=== PATIENT | female | born 1950 | race African-American/Black ===

== ENCOUNTER 2020-10-27 09:58 | Outpatient (CLI) | payer MEDICARE, SELFPAY ==
--- NOTE | 2020-10-27 16:32 | PFT_ITS ---
This report was moved to the correct visit, [id number], October 31, 2020. Original report was signed by Dr. Morris Crespo on October 27, 2020 at 1632. PFT Interpretation This is a pulmonary function test with pre and post-bronchodilator spirometry, plethysmography and diffusing capacity. The test was performed and results interpreted in accordance with the 2019 and 2005 ATS/ERS Task Force guidelines respectively using the Global Lung Function Initiative-2012 reference equations. Patient demonstrated good effort and cooperation. Reproducibility criteria were met. The quality of the pre bronchodilator spirometry maneuver was Grade A and post bronchodilator spirometry maneuver was Grade C. Patient had fair effort on the pre bronchodilator spirometry maneuvers. Findings: Spirometry: The expiratory flow tracing on the pre bronchodilator efforts is greatly diminished and uninterpretable likely due to poor effort. The contour of the expiratory flow tracing on the post bronchodilator effort is normal. The contour the inspiratory flow tracing are normal. The pre bronchodilator FVC is 2.10 L, 80% predicted. The pre bronchodilator FEV1 is 0.77 L, 38% predicted. The FEV1: FVC ratio on the pre bronchodilator effort is 37%. The FEV1: FVC ratio on the post bronchodilator effort is 80%. The post bronchodilator FVC is 2.26 L, representing an 8% increase. The post bronchodilator FEV1 is 1.80 L, representing 133% increase. Plethysmography: The total lung capacity is 4.03 L, 85% predicted. The functional residual capacity is 2.22 L, 73% predicted. The residual volume is 1.86 L, 87% predicted. Diffusing capacity: The absolute diffusion capacity is 9.4, 44% predicted. The diffusing capacity corrected for alveolar volume is 3.45, 82% predicted. Impression: The pre bronchodilator efforts are uninterpretable liklely due to poor effort. Recommend repeating test if clinically indicated. The post bronchodilator spirometry is normal without evidence of an obstructive abnormality. The lung volumes are normal. The absolute diffusing capacity is moderately decreased and normalizes when corrected for alveolar volume. There are no prior studies for comparison This dictation may have been done utilizing a voice recognition system. Attempts have been made to correct errors. However, there may be uncorrected grammatical, spelling, and recognition errors present. Report Initialized date/time: Morris Crespo MD 10/27/202 Electronically signed by: Morris Crespo MD 10/27/20 1632 [facility]
== END 2020-10-27 09:59 | disposition home or self-care (01) ==
PROVIDERS: PCP Internal Medicine Infectious Disease; Visit Provider Internal Medicine Infectious Disease
DX: R06.09 Other forms of dyspnea (principal)
CPT/HCPCS: 94060; 94726; 94729

== ENCOUNTER 2021-04-30 15:18 | Outpatient (CLI) | payer MEDICARE, SELFPAY ==
--- NOTE | ~2021-04-30 | CT_ITS ---
EXAMINATION: CT IAC/mastoids BI wo con EXAM DATE: 04/30/2021 16:34 INDICATION: TMJ pain, dysfunction left side of jaw. Symptoms 6 months. Difficulty opening mouth. TECHNIQUE: Spiral CT of the internal auditory canals was performed without contrast. Axial and deborah nal images were reviewed. The dose-length product (DLP) for this examination was 174.86 mGy-cm. The exposure was tailored according to patient size, and iterative reconstruction (ASIR) was used as add itional dose reduction technique. There is no prior study for comparison. FINDINGS: Temporomandibular joints were imaged. 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 No fracture or erosion. No mandibular condyle dislocation or subluxation. Incomplete fusion posterior arch of C1, normal congenital variant. RIGHT side: The middle ear is well aerated. The mastoid air cells are well aerated. The seventh experimental aircraft mechanic nial nerve has a normal course. The scutum is intact. The ossicles are normal in appearance. The cochlea and semicircular canals are normal in appearance. Internal auditory canal is normal in appea edie and symmetric compared to contralateral side. LEFT side: The middle ear is well aerated. The mastoid air cells are well aerated. The seventh cran ial nerve has a normal course. The scutum is intact. The ossicles are normal in appearance. The c ochlea and semicircular canals are normal in appearance. Internal auditory canal is normal in appear ance and symmetric compared to contralateral side. IMPRESSION: 1. Mild bilateral TMJ primary osteoarthritis. 2. Unremarkable internal auditory canals, middle ears. Reviewed, dictated and finalized at location B.
== END 2021-04-30 15:19 | disposition home or self-care (01) ==
PROVIDERS: PCP Internal Medicine Infectious Disease; Visit Provider Internal Medicine
DX: M26.629 Arthralgia of temporomandibular joint, unspecified side (principal); M26.643 Arthritis of bilateral temporomandibular joint
CPT/HCPCS: 70480

== ENCOUNTER 2022-01-01 10:29 | Outpatient (CLI) | payer OTHER, MEDICARE, SELFPAY ==
[2022-01-01 10:58] LABS: Ammonia < 9 umol/L (9-30)
[2022-01-01 11:02] LABS: INR 1.2; Prothrombin Time 14.7 Seconds (11.1-14.7)
[2022-01-01 12:07] LABS: Hepatitis B Surface Antigen Negative (Negative)
[2022-01-01 12:13] LABS: HAV RESULT Negative (Negative); Hepatitis B Core IgM Result Negative (Negative)
[2022-01-01 12:24] LABS: Hepatitis C Virus Antibody Negative (Negative)
[2022-01-04 22:32] LABS: Ceruloplasmin 33 mg/dL (18-53)
== END 2022-01-01 10:30 | disposition home or self-care (01) ==
LOC: ANHLAB 10:31
PROVIDERS: PCP Internal Medicine Infectious Disease; Visit Provider Internal Medicine Gastroenterology
DX: K74.60 Unspecified cirrhosis of liver (principal)
CPT/HCPCS: 36415; 80074; 82140; 82390; 82728; 85610

== ENCOUNTER 2022-02-04 07:22 | Outpatient (CLI) | payer OTHER, MEDICARE, SELFPAY ==
--- NOTE | ~2022-02-04 | US_ITS ---
EXAMINATION: US abdomen complete DATE: 02/04/2022 08:38 INDICATION: Unspecified cirrhosis of the liver TECHNIQUE: Multiple grayscale and Doppler ultrasound images of the abdomen were obtained. COMPARISON: None available FINDINGS: Bowel gas obscures visualization of the pancreas. The visualized portions of the pancreas a re unremarkable. The liver demonstrates increased echogenicity, heterogenous echotexture, and decreas ed through transmission. There is nodularity of the liver surface. There is a 2.2 x 2 x 1.4 cm mixed echogenicity lesion of the liver. Normal hepatopetal flow in the main portal vein. The gallbladder is normal with no abnormal wall thickening, pericholecystic fluid or stones. The normal common bile nataliia t measures 4 mm. There was no sonographic Espitia sign. The visualized portions of the aorta and infer ior vena cava are normal. The right kidney measures 10.7 x 4.4 x 5.4 cm. The left kidney measures 9.9 x 5 x 4.9 cm. The kidneys demonstrate normal parenchymal echogenicity. There is no hydronephrosis. The spleen is normal in pallavi earance and measures 8.7 cm. IMPRESSION: 1. Cirrhosis of liver with indeterminate 2.2 cm liver lesion. Further evaluation by MRI without and w ith contrast is recommended. Reviewed, dictated and finalized at location A. IMPRESSION: 1. Cirrhosis of liver with indeterminate 2.2 cm liver lesion. Further evaluatio n by MRI without and with contrast is recommended.
== END 2022-02-04 07:23 | disposition home or self-care (01) ==
PROVIDERS: PCP Internal Medicine Infectious Disease; Visit Provider Internal Medicine Gastroenterology
DX: K74.60 Unspecified cirrhosis of liver (principal)
CPT/HCPCS: 76700

== ENCOUNTER 2022-02-21 00:49 | Day surgery (SDC) | payer OTHER, MEDICARE, SELFPAY ==
[2022-02-04 14:18] VITALS: BMI 42.0
--- NOTE | 2022-02-20 15:39 | PM.HPGS ---
History of Present Illness History of Present Illness Consent: Risks, benefits, and alternatives have been discussed and questions answered. Patient agrees to proceed with procedure. Chief complaint: nausea Narrative: Danielle German is a 71 year old female who was recently found to have cirrhosis when she had an ultrasound a few months ago.? She has no known history of liver disease.? She was never a drinker.? She has never had hepatitis or yellow jaundice.? As far as her gastrointestinal system,? she has had no? weight loss or vomiting but actually has been quite nauseated for the past 6 months.? This is particularly bothersome in the morning and again later in the evening.? As the morning goes on or if she eats it subsides.? She has not been losing weight.? She has tried Pepcid but this did not give her any significant relief.? Review of Systems Review of Systems: All systems reviewed & are unremarkable except as noted in HPI and below PMFSH Past Medical History Medical History Abnormal liver diagnostic imaging Arthritis Cirrhosis Diverticulosis DJD of left shoulder History of ectopic Hypertension Left shoulder pain Nausea Nausea and vomiting Pulmonary embolism Tendonitis of left rotator cuff Family History Family History Father Asthma Heart disease Mother Hypertension Heart disease Social History Social History Smoking status: Never smoker Alcohol intake: never Substance use: never Meds Home Medications and Allergies Home Medications Medication Instructions Recorded Confirmed Type aspirin 81 mg tablet,delayed 81 mg PO DAILY 01/01/22 02/04/22 History release carvedilol 6.25 mg tablet (Coreg) 6.25 mg PO Q12H 01/01/22 02/04/22 History hydroxychloroquine 200 mg tablet 200 mg PO DAILY 01/01/22 02/04/22 History (Plaquenil) valsartan 320 1 tablet PO DAILY 01/01/22 02/04/22 History mg-hydrochlorothiazide 25 mg tablet rosuvastatin 40 mg tablet 40 tablet PO DAILY 02/04/22 02/04/22 History Allergies Allergy/AdvReac Type Severity Reaction Status Date / Time JESUS Inhibitors Allergy Severe Swelling Verified 02/21/22 08:19 of Lip/Tongue/Throat Sulfa (Sulfonamide Allergy Mild Itching Verified 02/21/22 08:19 Antibiotics) Exam Const: General: alert Orientation/consciousness: patient oriented x3 Resp: Auscultation: clear to auscultation bilaterally Cardio: Rhythm: regular rhythm GI: GI Palp: Yes Soft to palpation and No Tenderness to palpation present (GI) Neuro: General: patient oriented x3 Assessment and Plan Assessment and plan (1) Nausea: Code(s): R11.0 - Nausea Status: Acute Assessment and Plan: EGD with possible biopsy or dilatation or cautery.
[2022-02-21 08:20] VITALS: BP 168/73; PULSE 64; RESP 20; TEMP 36.1; O2SAT 100; BMI 41.7
[2022-02-21] MEDS: LACTATED RINGERS 1,000 ML 150 ML IV CONT (08:27)
--- NOTE | 2022-02-21 09:03 | WPDANESEPPF ---
Anes - Initial Pre Proc Eval Procedure: Operation Date: 02/21/22 09:45 Proposed Procedures p Esophagogastroduodenoscopy - Javier Chavez MD Date/Time: 02/21/22 09:03 Surgeon: Javier Chavez MD Pre Op Diagnosis: nausea Patient Data Age: 71 Gender: F Height: 1.68 m Weight: 117.2 kg Last Vital Signs Temp 96.9 F L 02/21/22 08:20 Pulse 64 02/21/22 08:20 Resp 20 02/21/22 08:20 BP 168/73 H 02/21/22 08:20 Pulse Ox 100 02/21/22 08:20 O2 Del Method Room Air 02/21/22 08:20 Allergies Allergy/AdvReac Type Severity Reaction Status Date / Time JESUS Inhibitors Allergy Severe Swelling Verified 02/21/22 08:19 of Lip/Tongue/Throat Sulfa (Sulfonamide Allergy Mild Itching Verified 02/21/22 08:19 Antibiotics) Home Medications Medication Instructions Recorded Confirmed Type aspirin 81 mg tablet,delayed 81 mg PO DAILY 01/01/22 02/04/22 History release carvedilol 6.25 mg tablet (Coreg) 6.25 mg PO Q12H 01/01/22 02/04/22 History hydroxychloroquine 200 mg tablet 200 mg PO DAILY 01/01/22 02/04/22 History (Plaquenil) valsartan 320 1 tablet PO DAILY 01/01/22 02/04/22 History mg-hydrochlorothiazide 25 mg tablet rosuvastatin 40 mg tablet 40 tablet PO DAILY 02/04/22 02/04/22 History Patient hx anesthesia problems: none Family hx anesthesia problems: none Results Review: All pre-operative results and documents have been reviewed as part of the pre-operative evaluation. [facility] Past Medical History Medical History Abnormal liver diagnostic imaging Arthritis Cirrhosis Diverticulosis DJD of left shoulder History of ectopic Hypertension Left shoulder pain Nausea Nausea and vomiting Pulmonary embolism Tendonitis of left rotator cuff Family History Family History Father Asthma Heart disease Mother Hypertension Heart disease Social History Social History Smoking status: Never smoker Alcohol intake: never Substance use: never Anes - Eval Final PreProcedure Day of Procedure 02/21/22 09:03 Patient weight: morbidly obese Heart: regular rate and rhythm Lungs: clear to auscultation Airway: Mallampati scale class II Neurological: alert and oriented Last oral intake: >/= 8 hours ASA classification: III Emergent: no Anesthetic plan: proceed Anesthesia type and monitoring: general GIVS and standard monitoring Results Review: All pre-operative results and documents have been reviewed as part of the pre-operative evaluation. Informed Consent: The patient's anesthetic plan and its attendant risks and benefits were discussed with the patient/family/POA. Questions were solicited and answers provided to the satisfaction of the patient/family/POA.
[2022-02-21 09:40] VITALS: BP 110/64; PULSE 67; RESP 14; TEMP 36.1; O2SAT 100
[2022-02-21 10:00] VITALS: BP 125/64; PULSE 62; RESP 17; TEMP 36.1; O2SAT 100
== END 2022-02-21 10:32 | disposition home or self-care (01) ==
PROVIDERS: PCP Internal Medicine Infectious Disease; Visit Provider Internal Medicine Gastroenterology
PROC: 0DJ08ZZ Inspection of Upper Intestinal Tract, Via Natural or Artificial Opening Endoscopic (ICD-10-PCS; CPT 43235; principal; 2022-02-21 09:45)
DX: R11.0 Nausea (principal); K21.9 Gastro-esophageal reflux disease without esophagitis; K74.60 Unspecified cirrhosis of liver; I10 Essential (primary) hypertension; Z86.711 Personal history of pulmonary embolism; Z79.82 Long term (current) use of aspirin
CPT/HCPCS: 43239; 87081; J2704; J7120

== ENCOUNTER 2022-02-28 10:03 | Outpatient (CLI) | payer OTHER, MEDICARE, SELFPAY ==
[2022-02-28 11:56] LABS: Alanine Aminotransferase 13 U/L (6-35); Aspartate Amino Transferase 70 U/L (14-36)
== END 2022-02-28 10:04 | disposition home or self-care (01) ==
PROVIDERS: PCP Internal Medicine Infectious Disease; Visit Provider Podiatrist Foot & Ankle Surgery
DX: B35.1 Tinea unguium (principal)
CPT/HCPCS: 36415; 84450; 84460

== ENCOUNTER 2022-03-01 13:57 | Outpatient (CLI) | payer OTHER, MEDICARE, SELFPAY ==
--- NOTE | ~2022-03-01 | MR_ITS ---
EXAMINATION: MR abdomen wo/w con DATE: 03/01/2022 15:07 INDICATION: Abnormal ultrasound with indeterminate hepatic lesion. TECHNIQUE: Magnetic resonance imaging (MRI) of the abdomen was performed without and with 20 mL Multi nery intravenous contrast. Sequences included coronal T2-weighted SS-FSE, coronal and axial FS 2D-F IESTA, axial STIR FSE, axial T2-weighted SS-FSE, axial T2-weighted FS SS-FSE, axial diffusion-weighte d SE, axial dual-echo T1-weighted FSPGR, and axial and coronal T1-weighted LAVA. Postcontrast axial T 1-weighted LAVA images were obtained in a time course. Postcontrast coronal T1-weighted LAVA images w ere obtained. COMPARISON: Ultrasound dated 02/04/2022 FINDINGS: Heart size is normal. No pericardial or pleural effusion. 1.5 cm T2 hyperintense cyst with nearly ind iscernible thin nonenhancing internal septation. No enhancing soft tissue component. Gallbladder, harrington creas, spleen, bilateral adrenal glands and left kidney are normal. 4 mm nonenhancing T2 hyperintense cyst at the lower pole of the right kidney. 8 mm splenule along the caudal margin of the spleen. Colby dder, anteverted uterus and bilateral adnexa are unremarkable on the coronal images. Visualized bowel s are normal with no obstruction. No pathologically enlarged abdominal or pelvic lymphadenopathy. Mil d lumbar dextrocurvature with mild spondylosis. Normal bone marrow signal. IMPRESSION: 1. 1.5 cm septated cyst in the right hepatic lobe with no solid enhancing soft tissue component to santiago ggest neoplasm. Reviewed, dictated and finalized at location B. IMPRESSION: 1. 1.5 cm septated cyst in the right hepatic lobe with no solid enhancing soft tissue component to suggest neoplasm.
[2022-03-01 14:28] LABS: Estimated Glomerular Filt Rate > 60
== END 2022-03-01 13:58 | disposition home or self-care (01) ==
PROVIDERS: PCP Internal Medicine Infectious Disease; Visit Provider Internal Medicine Gastroenterology
DX: R16.0 Hepatomegaly, not elsewhere classified (principal); K76.89 Other specified diseases of liver
CPT/HCPCS: 74183; A9577

== ENCOUNTER 2022-03-08 07:52 | Emergency (ER) | payer OTHER, MEDICARE, SELFPAY ==
--- NOTE | ~2022-03-08 | XR_ITS ---
EXAMINATION: XR knee LT min 4V DATE: 03/08/2022 09:52 INDICATION: Generalized left knee pain post fall 2 weeks prior TECHNIQUE: Anteroposterior, 2 oblique and crosstable lateral views of the left knee were obtained COMPARISON: None. FINDINGS: Left total knee arthroplasty with patellar resurfacing appears well seated in near-anatomic alignment . No periprosthetic lucency to suggest loosening or infection. No acute fracture. Chronic periosteal reaction along the lateral metaphyseal region of the proximal tibia could represent sequela of prior surgery or old healed fracture. Small corticated osteochondral body projects over Hoffa's fat pad. So ft tissues are unremarkable. No left knee joint effusion. IMPRESSION: 1. Left total knee arthroplasty in near-anatomic alignment. No left knee joint effusion or acute osse ous abnormality. Reviewed, dictated and finalized at location A. IMPRESSION: 1. Left total knee arthroplasty in near-anatomic alignment. No left knee joint effusion or acute osseous abnormality.
--- NOTE | ~2022-03-08 | XR_ITS ---
XR hip LT 2V w AP pelvis 03/08/2022 08:26 Indication: Left hip pain Procedure: AP pelvis and 2 views left hip Comparison: No prior studies for comparison. Findings: There is mild osteoarthritis of the left hip. There is lower lumbar spondylosis. Pelvic rin gs are intact. No acute fracture or traumatic malalignment. Sacral foramen are symmetric. Pelvic ring s are intact. Impression: 1: No acute fracture. Reviewed, dictated and finalized at location A. Impression: 1: No acute fracture.
--- NOTE | ~2022-03-08 | CT_ITS ---
EXAMINATION: CT pelvis wo con DATE: 03/08/2022 09:40 INDICATION: Left hip pain post fall 2 weeks prior. TECHNIQUE: High resolution computed tomography (CT) of the pelvis was performed without intravenous c ontrast. Additional sagittal and coronal reconstructions were performed. Automated exposure control a nd iterative reconstruction technique were employed. The dose-length product was 822.31 mGy-cm. COMPARISON: None FINDINGS: Mild bilateral hip osteoarthritis with mild subarticular cystic changes at the anterior superior righ t acetabulum. No fracture or suspected avascular necrosis. No evident hip joint effusions, hematomas or other abnormal fluid collections. Moderate bilateral sacroiliac osteoarthritis. Anterior spinal fu sonny at L5-S1. 2-3 mm anterolisthesis L4 on L5. Bone alignment is otherwise normal. Mild disc height loss at L3-L4 and L4-L5. Severe bilateral lower lumbar facet osteoarthritis. Visualized portion of th e lower pole of the right kidney and bowels are normal. Bladder is normal. Age-appropriate uterine at rophy. No free fluid in the pelvis. No pathologically enlarged pelvic or inguinal lymphadenopathy. IMPRESSION: 1. Mild bilateral hip osteoarthritis. No acute osseous abnormality. 2. Anterior fusion at L5-S1 with severe lower lumbar facet osteoarthritis and mild degenerative disc disease at L3-L4 and L4-L5. Reviewed, dictated and finalized at location A. IMPRESSION: 1. Mild bilateral hip osteoarthritis. No acute osseous abnormality. 2. Anterior fusion at L5-S1 with severe lower lumbar facet osteoarthritis and m ild degenerative disc disease at L3-L4 and L4-L5.
[2022-03-08 07:56] VITALS: BP 133/102; PULSE 65; RESP 14; TEMP 36.1; O2SAT 97
[2022-03-08] MEDS: NAPROXEN 500 MG TABLET PO (09:55)
[2022-03-08] MEDS: HYDROmorphone HCL INJ (*CRX) 1 MG/ML SYR IM (10:39)
[2022-03-08] MEDS: ONDANSETRON HCL ODT 4 MG TABLET PO (10:39)
--- NOTE | 2022-03-08 10:43 | ED.LOWEXIN ---
HPI - Extremity Injury (Lower) General Chief Complaint: Extremity Injury, Lower Stated Complaint: left hip pain, fell two weeks ago. Time Seen by Provider: 03/08/22 08:00 Source: patient and RN notes reviewed Mode of arrival: wheelchair Limitations: no limitations History of Present Illness HPI Narrative: This is a 71 year old female who presents for evaluation of left hip pain s/p fall. Patient states she accidentally fell 2 weeks ago onto her left hip. She reports it was on carpeted floor. She denies hitting her head or LOC. She has been having mild pain to her left hip since her fall, but she states it worsened 1 week ago. Her pain is worse with ambulation. She has been taking excedrine and aleve for her pain. She is using cane to walk. She denies numbness or tingling. Related Data Home Medications Medication Instructions Recorded Confirmed aspirin 81 mg tablet,delayed 81 mg PO DAILY 01/01/22 02/04/22 release carvedilol 6.25 mg tablet (Coreg) 6.25 mg PO Q12H 01/01/22 02/04/22 hydroxychloroquine 200 mg tablet 200 mg PO DAILY 01/01/22 02/04/22 (Plaquenil) valsartan 320 1 tablet PO DAILY 01/01/22 02/04/22 mg-hydrochlorothiazide 25 mg tablet rosuvastatin 40 mg tablet 40 tablet PO DAILY 02/04/22 02/04/22 Allergies Allergy/AdvReac Type Severity Reaction Status Date / Time JESUS Inhibitors Allergy Severe Swelling Verified 03/08/22 08:07 of Lip/Tongue/Throat Sulfa (Sulfonamide Allergy Mild Itching Verified 03/08/22 08:07 Antibiotics) Review of Systems Review of Systems: All systems reviewed & are unremarkable except as noted in HPI and below PMFSH Past Medical History Medical History Abnormal liver diagnostic imaging Arthritis Cirrhosis Diverticulosis DJD of left shoulder History of ectopic Hypertension Left shoulder pain Nausea Nausea and vomiting Pulmonary embolism Tendonitis of left rotator cuff Family History Family History Father Asthma Heart disease Mother Hypertension Heart disease Social History Social History Smoking status: Never smoker Alcohol intake: never Substance use: never Exam Const: General: no acute distress and alert Nutritional Appearance: obese Orientation/consciousness: patient oriented x3 Limitations: no limitations Eyes: EOM: EOMs intact bilaterally Resp: Effort & Inspection: normal respiratory effort Cardio: Other: bilateral pedal pulse Skin: General skin exam: normal color Rashes: no rashes Wounds: no wounds Neuro: General: patient oriented x3, moves all extremities and CN's II-XI intact bilaterally Extrem: Other: FROM of left leg and hip, no noticeable swelling. Patient has pain with walking and bearing weight Psych: Mental Status: mental status grossly normal Affect: normal affect Course Reevaluation(s) Reevaluation #1: I discussed with patient that xray and CT does not show acute fracture. She is finding a ride to get more pain control. Date: 03/08/22 Time: 10:47 Vital Signs Vital signs: Vital Signs Temperature 97.0 F L 03/08/22 07:56 Pulse Rate 65 03/08/22 07:56 Respiratory Rate 14 03/08/22 07:56 Blood Pressure 133/102 H 03/08/22 07:56 Pulse Oximetry 97 03/08/22 07:56 Oxygen Delivery Room Air 03/08/22 07:56 Temperature 97.0 F L 03/08/22 07:56 Pulse Rate 65 03/08/22 07:56 Respiratory Rate 14 03/08/22 07:56 Blood Pressure 133/102 H 03/08/22 07:56 Pulse Oximetry 97 03/08/22 07:56 Oxygen Delivery Room Air 03/08/22 07:56 MDM - Extremity Injury (Lower) Imaging Data Radiologist's impression: ITS Impressions Hip/Pelvis X-Ray 03/08/22 08:29 Impression: 1: No acute fracture. Knee X-Ray 03/08/22 09:55 IMPRESSION: 1. Left total knee arthroplasty in near-anatomic
== END 2022-03-08 11:05 | disposition home or self-care (01) ==
PROVIDERS: Emergency Provider General Practice; PCP Internal Medicine Infectious Disease
DX: S79.912A Unspecified injury of left hip, initial encounter (principal); M16.0 Bilateral primary osteoarthritis of hip; K74.60 Unspecified cirrhosis of liver; I10 Essential (primary) hypertension; M19.012 Primary osteoarthritis, left shoulder; Z86.711 Personal history of pulmonary embolism; Z96.652 Presence of left artificial knee joint; M51.36 Other intervertebral disc degeneration, lumbar region; M47.816 Spondylosis without myelopathy or radiculopathy, lumbar region; M43.27 Fusion of spine, lumbosacral region; W19.XXXA Unspecified fall, initial encounter
CPT/HCPCS: 72192; 73502; 73564; 96372; 99284; A9270; J1170

== ENCOUNTER 2022-08-27 16:05 | Outpatient (CLI) | payer OTHER, MEDICARE, SELFPAY ==
[2022-08-27 17:04] LABS: Alanine Aminotransferase 19 U/L (6-35); Albumin Level 4.2 g/dL (3.5-5.1); Alkaline Phosphatase 125 U/L (38-126); Aspartate Amino Transferase 29 U/L (14-36); Bilirubin,Total 0.2 mg/dL (0.2-1.3)
== END 2022-08-27 16:06 | disposition home or self-care (01) ==
PROVIDERS: PCP Internal Medicine Infectious Disease; Visit Provider Internal Medicine Gastroenterology
DX: K74.60 Unspecified cirrhosis of liver (principal)
CPT/HCPCS: 36415; 80076

== ENCOUNTER 2022-09-05 07:29 | Outpatient (CLI) | payer OTHER, MEDICARE, SELFPAY ==
--- NOTE | ~2022-09-05 | US_ITS ---
Abdominal Sonogram: Real-time sonographic imaging of the abdomen was performed. Clinical History: Cirrhosis of the liver Findings: The liver appears normal with no evidence of mass lesion or bile duct dilatation. Main por marjorie vein demonstrates normal direction of flow. The spleen is normal in size without evidence of foca l lesion. The gallbladder is well distended, and appears normal with no evidence of gallstone or wal l thickening. The common bile duct is not clearly visualized. The visualized aorta and IVC are unrem arkable. Pancreas largely obscured by bowel gas shadowing. The right kidney measures 11.0 cm in lengt h and the left kidney measures 10.3 cm. There is no hydronephrosis or renal calculus. Impression: No significant abnormality seen. Reviewed, dictated and finalized at [facility]. [employer] Impression: No significant abnormality seen.
== END 2022-09-05 07:30 | disposition home or self-care (01) ==
PROVIDERS: PCP Internal Medicine Infectious Disease; Visit Provider Internal Medicine Gastroenterology
DX: K74.60 Unspecified cirrhosis of liver (principal)
CPT/HCPCS: 76700

== ENCOUNTER 2023-04-17 16:46 | Outpatient (CLI) | payer OTHER, MEDICARE, SELFPAY ==
--- NOTE | ~2023-04-17 | MR_ITS ---
EXAMINATION: MR brain/brain stem wo con DATE: 04/17/2023 17:43 INDICATION: Lightheadedness. TECHNIQUE: Magnetic resonance imaging (MRI) of the brain and brainstem was performed without intraven ous contrast. COMPARISON: None. FINDINGS: There is no intracranial hemorrhage, acute infarction, or abnormal intracranial mass lesion . There are a few areas of nonspecific increased T2-weighted signal intensity in the cerebral white m atter, which is within normal limits for the patient's age. The ventricles are normal in size. The pa ranasal sinuses are clear. There are likely changes of ocular lens replacement surgeries. The mastoid air cells are normal. IMPRESSION: 1. Normal brain. Reviewed, dictated and finalized at location E. IMPRESSION: 1. Normal brain.
== END 2023-04-17 16:47 | disposition home or self-care (01) ==
LOC: ANHIMG 16:48
PROVIDERS: PCP Internal Medicine Infectious Disease; Visit Provider Internal Medicine Infectious Disease
DX: R42 Dizziness and giddiness (principal)
CPT/HCPCS: 70551

== ENCOUNTER → 2023-08-23 08:30 | Outpatient (CLI) | payer OTHER, MEDICARE, SELFPAY ==
--- NOTE | ~2023-08-23 | US_ITS ---
Abdominal Sonogram: Real-time sonographic imaging of the abdomen was performed. Clinical History: Cirrhosis Findings: The liver appears mild heterogeneous, with no evidence of mass lesion or bile duct dilatat ion. Main portal vein demonstrates normal direction of flow. The spleen is normal in size without yokasta dence of focal lesion. The gallbladder is well distended, and appears normal with no evidence of gal lstone or wall thickening. The common bile duct measures 3 mm. The pancreas is obscured by bowel gas shadowing. Visualized aorta/IVC are unremarkable. The right kidney measures 9.6 cm in length and th e left kidney measures 8.3 cm. There is no hydronephrosis or renal calculus. Impression: Heterogeneous hepatic echotexture could reflect fatty infiltration or other chronic liver disease. Reviewed, dictated and finalized at [facility]. CLERK Impression: Heterogeneous hepatic echotexture could reflect fatty infiltration or other chr onic liver disease.
== END ==
PROVIDERS: PCP Internal Medicine Gastroenterology; Visit Provider Internal Medicine Gastroenterology
DX: K74.60 Unspecified cirrhosis of liver (principal)
CPT/HCPCS: 76700

== ENCOUNTER → 2023-08-23 08:43 | Outpatient (CLI) | payer OTHER, MEDICARE, SELFPAY ==
--- NOTE | ~2023-08-23 | XR_ITS ---
Lumbosacral Spine: AP and lateral views Clinical History: Pain Findings: The normal lordotic curve is maintained. There is 6 mm anterolisthesis of L3 over L4. There is advanced degenerative disc narrowing L3-L4. There is advanced facet arthropathy throughout the diandra mbar spine. No fracture evident. The sacroiliac joints are normally outlined. Impression: 6 mm anterolisthesis of L3 over L4. Moderate to advanced degenerative spondylosis, as above. Reviewed, dictated and finalized at location M. [employer] SAL[employer] Impression: 6 mm anterolisthesis of L3 over L4. Moderate to advanced degenerative spondylosis, as above.
== END ==
PROVIDERS: PCP Internal Medicine Infectious Disease; Visit Provider Internal Medicine Infectious Disease
DX: M47.896 Other spondylosis, lumbar region (principal)
CPT/HCPCS: 72100

== ENCOUNTER 2023-11-03 10:41 | Outpatient (CLI) | payer OTHER, MEDICARE, SELFPAY ==
[2023-11-03 11:18] LABS: Hematocrit 34.5 % (37.0-47.0); Hemoglobin 11.1 g/dL (12.0-15.0); Mean Corpuscular HGB Conc 32.2 g/dl (32-36); Mean Corpuscular Hemoglobin 29.8 pg (26-34); Mean Corpuscular Volume 92.7 fl (80-100); Mean Platelet Volume 9.2 fl (7.4-10.4); Platelet Count Result 243 k/mm3 (150-375); Red Blood Count 3.72 M/mm3 (4.2-5.4); White Blood Count 4.4 K/mm3 (4.5-10.0)
[2023-11-03 11:35] LABS: Alanine Aminotransferase 14 U/L (6-35); Albumin Level 4.1 g/dL (3.5-5.1); Alkaline Phosphatase 115 U/L (38-126); Anion Gap 6 mmol/L (8-16); Aspartate Amino Transferase 24 U/L (14-36); Bilirubin,Total 0.6 mg/dL (0.2-1.3); Blood Urea Nitrogen 22 mg/dL (7-17); Calcium 9.4 mg/dL (8.4-10.2); Carbon Dioxide 24 mmol/L (22-30); Chloride 108 mmol/L (98-107); Estimated Glomerular Filt Rate > 60; Glucose 99 mg/dL (65-110); INR 1.2; Potassium 4.1 mmol/L (3.4-5.0); Prothrombin Time 15.9 Seconds (11.1-14.7); Sodium 138 mmol/L (137-145)
[2023-11-03 11:38] LABS: Appearance Urine Cloudy (Clear); Bacteria Urine None Seen /hpf; Bilirubin Urine Negative (Negative); Blood Urine Negative (Negative); Color Urine Yellow (Yellow); Glucose Urine UA Negative (Negative); Ketones Urine Negative (Negative); Leukocyte Esterase Ur 2+ LEU/UL (Negative); Need Manual Microscopic Reviewed; Nitrate Urine Negative (Negative); Non Pathogenic Casts 0-2; Protein Urine Negative (Negative); RBC Urine >100 /hpf (0-2); Specific Grav Ur 1.008 (1.001-1.035); Squamous Epithelial Cell Urine None Seen /hpf (Few); WBC Urine 51-100 /hpf (0-3); pH Urine 6.5 (5.0-9.0)
[2023-11-03 11:43] LABS: Add Urine Microscopic? YES
[2023-11-07 12:49] LABS: Actin Antibody (IgG) <20 U (<20); LKM 1 Antibody <=20.0 U (<=20.0)
[2023-11-08 21:05] LABS: Alpha-1-Antitrypsin, QN 130 mg/dL (83-199)
[2023-11-09 11:54] LABS: Mitochondrial (M2) Ab (IgG) <=20.0 U (<=20.0)
[2023-11-12 17:08] LABS: ALT 9 U/L (6-29); Alpha Fetoprotein Tumor Marker 1.9 ng/mL (<6.1); Alpha-2-Macroglobulin 277 mg/dL (106-279); Apolipoprotein A1 119 mg/dL (101-198); Fibrosis Score 0.45; Fibrosis Stage F1-F2; GGT 21 U/L (3-65); Haptoglobin 118 mg/dL (43-212); Necroinflammat Act Grade A0; Total Bilirubin 0.4 mg/dL (0.2-1.2)
== END 2023-11-03 10:42 | disposition home or self-care (01) ==
PROVIDERS: PCP Internal Medicine Infectious Disease; Visit Provider Nurse Practitioner
DX: R30.0 Dysuria (principal); K74.60 Unspecified cirrhosis of liver
CPT/HCPCS: 36415; 80053; 81596; 82103; 82105; 83520; 85027; 85610; 86364; 86376; 87077; 87086; 87088; 87186

== ENCOUNTER 2024-04-30 07:26 | Outpatient (CLI) | payer OTHER, MEDICARE, SELFPAY ==
--- NOTE | ~2024-04-30 | US_ITS ---
EXAMINATION: US abdomen limited DATE: 04/30/2024 08:04 INDICATION: Liver fibrosis TECHNIQUE: Multiple grayscale and Doppler ultrasound images of the abdomen were obtained. COMPARISON: Ultrasound dated 08/23/2023 and MRI dated 03/01/2022 FINDINGS: The pancreatic head and body are normal in appearance. The pancreatic tail is not visualized. The vi sualized proximal to mid inferior vena cava and aorta are normal. Liver has normal echogenicity and c ontour, with a smooth surface. Increase in size of a previously 1.5 cm currently 2.2 cm anechoic sept ated cyst in the caudal right hepatic lobe. No other hepatic lesions identified. No intrahepatic bili eula duct dilation suspected. Portal venous flow was seen in the hepatopetal, normal direction and has normal Doppler waveform. The gallbladder is normal in appearance. There is no cholelithiasis. The c ommon bile duct measures 4 mm, which is normal. Sonographic Espitia sign was reported as negative by t library serials assistant. IMPRESSION: 1. 2.2 cm septated cyst in the right hepatic lobe. Otherwise unremarkable right upper quadrant ultras ound. Reviewed, dictated and finalized at location B. IMPRESSION: 1. 2.2 cm septated cyst in the right hepatic lobe. Otherwise unremarkable right upper quadrant ultrasound.
== END 2024-04-30 07:27 | disposition home or self-care (01) ==
PROVIDERS: PCP Internal Medicine Infectious Disease; Visit Provider Nurse Practitioner Family
DX: K74.69 Other cirrhosis of liver (principal)
CPT/HCPCS: 76705

== ENCOUNTER 2024-07-13 09:44 | Emergency (ER) | payer OTHER, MEDICARE, SELFPAY ==
--- NOTE | ~2024-07-13 | XR_ITS ---
XR chest 2V Ordering provider: Nickolas Arzola APRN History: 74 years Female with . cough/sob x 5 days . Comparison: None. FINDINGS: MEDIASTINUM: The cardiac silhouette is not enlarged. LUNGS: No infiltrates, effusions or pneumothorax. OTHER: No free air under the diaphragm. Degenerative changes of the spine. IMPRESSION: No acute cardiopulmonary pathology. Reviewed, dictated and finalized at location A. [employer]
--- NOTE | 2024-07-13 09:57 | ED.URI ---
HPI - URI/Sore Throat General Chief Complaint: Upper Respiratory Infection Stated Complaint: Fever/Sinus Time Seen by Provider: 07/13/24 09:47 Source: patient Mode of arrival: ambulatory Limitations: no limitations History of Present Illness HPI Narrative: Danielle is a 74-year-old female patient presenting to the clinic today with complaints of cough, vomiting, fever, body aches, chills, sinus congestion, and congestion. She states that she has been sick for the last week but over the last 5 days her symptoms have worsened. States she does have some shortness of breath with her coughing. No history of COPD or asthma. MD elicited complaint: sore throat and nasal congestion Related Data Home Medications Medication Instructions Recorded Confirmed aspirin 81 mg tablet,delayed 81 mg PO DAILY 01/01/22 07/13/24 release carvedilol 6.25 mg tablet (Coreg) 6.25 mg PO Q12H 01/01/22 07/13/24 hydroxychloroquine 200 mg tablet 200 mg PO DAILY 01/01/22 07/13/24 (Plaquenil) valsartan 320 1 tablet PO DAILY 01/01/22 07/13/24 mg-hydrochlorothiazide 25 mg tablet cholecalciferol (vitamin D3) 1,250 1,250 mcg PO WEEKLY 02/25/23 07/13/24 mcg (50,000 unit) capsule oxybutynin chloride 10 mg 10 mg PO DAILY 07/13/24 07/13/24 tablet,extended release 24 hr Allergies Allergy/AdvReac Type Severity Reaction Status Date / Time JESUS Inhibitors Allergy Severe Swelling Verified 07/13/24 10:05 of Lip/Tongue/Throat Sulfa (Sulfonamide Allergy Mild Itching Verified 07/13/24 10:05 Antibiotics) Review of Systems Review of Systems: Pertinent positives per HPI. Patient denies any fever, chills, rash, headache, visual changes, dizziness, chest pain, palpitations, diarrhea, constipation, abdominal pain, or any urinary issues. [facility] Past Medical History Medical History Abnormal liver diagnostic imaging Arthritis Cirrhosis Diverticulosis DJD of left shoulder Dysuria Hepatic cyst History of ectopic Hypertension Left shoulder pain Nausea Nausea and vomiting Pulmonary embolism Tendonitis of left rotator cuff Family History Family History Father Asthma Heart disease Mother Hypertension Heart disease Social History Social History Smoking status: Never smoker Alcohol intake: never Substance use: never Comments At the time of my signature, I reviewed and agree with the nursing past medical, surgical, social, and family history. There is no relevant family history pertinent to the patient complaint. Exam Narrative: General: Well-developed, well nourished, in no apparent distress Head: Normocephalic, atraumatic Eyes: Pupils equally round and reactive to light bilaterally, EOM intact, sclera and conjunctive clear, no discharge, lids normal Ears: TMs intact and congested, ear canals clear, no drainage, grossly hearing normal. Nose: Nares patent, clear nasal discharge, no inflammation, no sinus tenderness. Mouth: Oral pharynx without lesions or masses, good dentition, MMM. Neck: Supple, trachea midline, no enlargement of anterior or posterior cervical nodes, no thyroid masses or goiter palpable. Cardio: Regular rate and rhythm, s1 and s2 normal, no murmur appreciated. Resp: Diminished in the bases otherwise clear, no rhonchi, rales, wheezing or rubs Course Course Emergency Course: Portions of this record may have been created with voice recognition software. Level of Care: Express Care Visit Vital Signs Vital signs: Vital signs reviewed MDM - URI/Sore Throat MDM Narrative Medical decision making narrative: At the time of visit patient is resting comfortably on the exam table. Patient appears to be nontoxic. Labs: COVID and flu test were negative Diagnostics: Chest x-ray was performed and negative for any acute cardiopulmonary process in the clinic today Plan: I suspect patient has URI with cough and congestion. Prescription for prednisone albuterol inhaler, and Tessalon Perles was sent to the pharmacy. Supportive measures were discussed with the patient and they voiced understanding discharge instructions and agrees to treatment plan. Return precautions reviewed Differential Diagnosis Differential diagnosis: Likely upper respiratory infection, otitis media, sinusitis, viral infection, bronchitis, influenza, pharyngitis and other (COVID) Discharge Plan Discharge Clinical Impression: Upper respiratory infection with cough and congestion Patient Disposition: Home, Self-Care Condition: Stable Instructions: Antibiotic Form, Upper Respiratory Infection (ED) Additional Instructions: COVID and influenza testing was negative in the clinic today Chest x-rays negative for any acute cardiopulmonary process. Take prescription medications only as prescribed-prednisone, Tessalon Perles, and albuterol inhaler Increase fluids and stay well hydrated Tylenol/motrin for pain/fever Flonase and OTC antihistamines as directed Vicks vapor rub to open sinuses Sinus rinses for congestion Cepacol spray, cough drops, throat lozenges, warm tea with honey/lemon, gargle salt water to soothe throat BRAT diet for diarrhea Clear liquids x 24 hours then advance as tolerated for nausea/vomiting Go to the ED if you develop a worsening in your condition- high fever not controlled by Tylenol or Motrin, dehydration, weakness, lethargy, shortness of breath, or chest pain. Follow up with your PCP in 3-5 days if symptoms persist. Prescriptions: New benzonatate 200 mg capsule 200 mg PO TID 7 Days Qty: 21 0RF albuterol sulfate 90 mcg/actuation HFA aerosol inhaler 2 puff inhalation Q4-6H PRN (Reason: shortness of breath or wheezing) 30 Days Qty: 8.5 0RF prednisone 20 mg tablet 40 mg PO DAILY 5 Days Qty: 10 0RF No Action oxybutynin chloride 10 mg tablet extended release 24hr 10 mg PO DAILY famotidine 40 mg tablet 40 mg PO DAILY Qty: 90 0RF valsartan-hydrochlorothiazide 320-25 mg tablet 1 tablet PO DAILY hydroxychloroquine [Plaquenil] 200 mg tablet 200 mg PO DAILY carvedilol [Coreg] 6.25 mg tablet 6.25 mg PO Q12H Rx Instructions: must administer with a meal/food aspirin 81 mg tablet,delayed release (DR/EC) 81 mg PO DAILY cholecalciferol (vitamin D3) 1,250 mcg (50,000 unit) capsule 1,250 mcg PO WEEKLY Follow-up/Referrals: Rosaline,Vickie Nunes [Primary Care Provider] - Time of Disposition: 10:31 Quality NIHSS Nursing Documentation ED NIHSS nursing documentation: reviewed/agree
[2024-07-13 10:04] VITALS: BP 148/80; PULSE 63; RESP 16; TEMP 36.4; O2SAT 100
[2024-07-13 10:17] VITALS: BP 148/80; PULSE 63; RESP 16; TEMP 36.4; O2SAT 100
[2024-07-13 10:17] LABS: EDCOVIDSCREEN Negative (Negative); EDINFLUASCREEN Negative (Negative); EDINFLUBSCREEN Negative (Negative)
== END 2024-07-13 10:40 | disposition home or self-care (01) ==
PROVIDERS: Emergency Provider Nurse Practitioner Family; PCP Internal Medicine Infectious Disease
DX: J06.9 Acute upper respiratory infection, unspecified (principal); R05.9 Cough, unspecified; Z20.822 Contact with and (suspected) exposure to COVID-19; K74.60 Unspecified cirrhosis of liver; I10 Essential (primary) hypertension; M19.90 Unspecified osteoarthritis, unspecified site; Z86.711 Personal history of pulmonary embolism; M19.012 Primary osteoarthritis, left shoulder
CPT/HCPCS: 71046; 87426; 87804; 99213; G0463

== ENCOUNTER 2024-11-19 07:45 | Outpatient (CLI) | payer OTHER, MEDICARE, SELFPAY ==
--- NOTE | ~2024-11-19 | US_ITS ---
US abdomen limited INDICATION: Cirrhosis of the liver. Liver mass. PROCEDURE: Realtime right upper abdominal ultrasound. COMPARISON: No prior studies for comparison. FINDINGS: Pancreas is not well visualized due to bowel gas. There is a heterogeneous 2.2 cm liver ma ss containing internal calcifications and marginal vascularity. There is normal directional flow in the portal vein. The gallbladder is normal without stones, gallbladder wall thickening or pericholecystic fluid. Comm on bile duct measures 3 mm. No sonographic Espitia's sign. IMPRESSION: 1: Complex partially calcified 2.2 cm liver mass. Correlation with MRI of the abdomen without and wit h contrast recommended. Reviewed, dictated and finalized at location A. IMPRESSION: 1: Complex partially calcified 2.2 cm liver mass. Correlation with MRI of the a bdomen without and with contrast recommended.
== END 2024-11-19 07:46 | disposition home or self-care (01) ==
PROVIDERS: PCP Internal Medicine Infectious Disease; Visit Provider Nurse Practitioner Family
DX: K74.69 Other cirrhosis of liver (principal); R16.0 Hepatomegaly, not elsewhere classified
CPT/HCPCS: 76705

== ENCOUNTER 2025-01-04 08:42 | Outpatient (CLI) | payer MEDICARE, OTHER, SELFPAY ==
--- NOTE | ~2025-01-04 | MR_ITS ---
EXAMINATION: MR abdomen wo/w con DATE: 01/04/2025 09:39 INDICATION: Abnormal findings on diagnostic imaging of liver and biliary system TECHNIQUE: Magnetic resonance imaging (MRI) of the abdomen was performed without and with 20 mL Multi nery intravenous contrast. Sequences included coronal T2-weighted SS-FSE, coronal and axial FS 2D-F IESTA, axial STIR FSE, axial T2-weighted SS-FSE, axial T2-weighted FS SS-FSE, axial diffusion-weighte d SE, axial dual-echo T1-weighted FSPGR, and axial and coronal T1-weighted LAVA. Postcontrast axial T 1-weighted LAVA images were obtained in a time course. Postcontrast coronal T1-weighted LAVA images w ere obtained. COMPARISON: 03/01/2022 FINDINGS: Heart size is normal. No pericardial or pleural effusion. 2.0 cm cyst in the right hepatic lobe which corresponds to a region of concern on prior ultrasound. No other hepatic lesions identified. Gallbla dder, spleen, pancreas and bilateral adrenal glands are normal. There are a few tiny bilateral T2 hyp erintense nonenhancing renal cysts the largest on the right measuring 4 mm. There are several scatter ed clonic diverticula without adjacent inflammatory stranding to suggest diverticulitis. There is is bowels are otherwise unremarkable with no obstruction. No pathologically enlarged abdominal or upper pelvic lymphadenopathy. Severe lumbar spondylosis. IMPRESSION: 1. The lesion of concern on prior ultrasound corresponds to a 2.0 cm hepatic cyst. Reviewed, dictated and finalized at location A. IMPRESSION: 1. The lesion of concern on prior ultrasound corresponds to a 2.[address]
== END 2025-01-04 08:43 | disposition home or self-care (01) ==
PROVIDERS: PCP Internal Medicine Infectious Disease; Visit Provider Nurse Practitioner
DX: R93.2 Abnormal findings on diagnostic imaging of liver and biliary tract (principal)
CPT/HCPCS: 74183; A9577

== ENCOUNTER 2025-05-27 08:04 | Outpatient (CLI) | payer OTHER, MEDICARE, SELFPAY ==
--- NOTE | ~2025-05-27 | US_ITS ---
ULTRASOUND ABDOMEN LIMITED (RIGHT UPPER QUADRANT) Clinical History: cirrhosis, HCC screening Comparison: MRI abdomen 01/04/2025 Technique: Right upper quadrant sonography Findings: Liver: Nodular contour. Normal size. Normal echotexture. No intrahepatic biliary ductal dilatation. Unchanged 2 cm cyst right lobe. Normal hepatopedal flow main portal vein. Common Duct: Normal caliber. 5 mm. Gallbladder: No stones. No wall thickening. No pericholecystic fluid. Pancreas: Mostly obscured by bowel gas. IMPRESSION: 1. No acute findings or significant change. 2. Nodular contour suggests cirrhosis. 3. Unchanged 2 cm cyst right lobe. Reviewed, dictated and finalized at location R.
--- NOTE | ~2025-05-27 | US_ITS ---
EXAMINATION: US thyroid DATE: 05/27/2025 08:51 INDICATION: Disorder of thyroid, unspecified. TECHNIQUE: Multiple ultrasound images of the thyroid were obtained. COMPARISON: None. FINDINGS: The right thyroid lobe measures 5.9 x 2.2 x 2.2 cm. The left thyroid lobe measures 6.1 x 2.6 x 2.5 cm. The thyroid demonstrates heterogeneous echogenicity. In the right thyroid lobe, there is a 1.5 cm mixed cystic and solid, isoechoic, wider than tall nodule with ill-defined margin without echogenic foci (TI-RADS TR2). In the right thyroid lobe, there is a 7 mm solid, hypoechoic, wider than tall nodule with smooth margin without echogenic foci (TR4). In the left thyroid lobe, there is a 1.4 cm mixed cystic and solid, hypoechoic, wider than tall nodule with smooth margin without echogenic foci (TR3). In the left thyroid lobe, there is a 10 mm mixed cystic and solid, hypoechoic, wider than tall nodule with smooth margin without echogenic foci (TR3). IMPRESSION: 1. Multinodular goiter, likely not clinically significant. No follow-up is needed. Reviewed, dictated and finalized at location E. IMPRESSION: 1. Multinodular goiter, likely not clinically significant. No follow-up is need ed.
== END 2025-05-27 08:05 | disposition home or self-care (01) ==
LOC: MICIMG 08:05
PROVIDERS: PCP Nurse Practitioner; Visit Provider Otolaryngology
DX: E07.9 Disorder of thyroid, unspecified (principal); H81.10 Benign paroxysmal vertigo, unspecified ear; K74.69 Other cirrhosis of liver; K76.89 Other specified diseases of liver; E04.2 Nontoxic multinodular goiter
CPT/HCPCS: 76536; 76705